=== PATIENT | female | born 1985 | race Caucasian/White ===

== ENCOUNTER → 2016-10-31 | Day surgery (SDC) | payer OTHER ==
[~2016-10-31] MED LIST: CHOL100010 PO; DIPH25CA65 PO; PRD/1 PO; PRT40 PO; TRAM-10 PO; ZOLP5TAB PO
== END | disposition home or self-care (01) ==
LOC: C.ACU 14:16
PROVIDERS: ATTEND Internal Medicine
DX: K63.89 Other specified diseases of intestine (principal); Z93.2 Ileostomy status